=== PATIENT | female | born 2000 | race Two or more races ===

== ENCOUNTER 2019-05-27 13:23 | Emergency (ER) | payer MEDICAID, SELFPAY ==
[2019-05-27 13:27] VITALS: BP 132/67; PULSE 116; RESP 24; TEMP 37.2; O2SAT 99; BMI 21.9
--- NOTE | 2019-05-27 15:14 | ED.DCSUM_ITS ---
History of Present Illness Chief Complaint: Anxiety Informant: Patient Onset: Today Context: Gradual Onset Timing: Continuous Current Severity: Mild Maximum Severity: Severe Narrative: Patient is a 19-year-old female presenting with concern for a panic attack. Patient states she was walking to school at [facility] when she started to feel anxious. Patient states she also started to feel chest tightness, sensation of her heart racing and shortness of breath. She called her friend and then came to the emergency room. Patient states she has not had any in creased stress in her life. She states she had a couple anxiety attacks in the past last one was over the summer. Patient currently states she is feeling better. She still has what she describes as a soreness in her chest. Patient notes she had some diarrhea for the past 2 days. She denies any other complaints. She states 2 weeks ago she was in [facility]. She denies any swelling of her legs. She currently has no shortness of breath. She never had any chest pain. She denies any fever, chills or rash. Patient does not have a counselor or primary care doctor. Patient denies any other complaints at this time. 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 Surgical History: - - Bladder surgery Review of Systems All systems negative except as indicated Cardiovascular: Reports: Heart racing, - - Chest tightness Respiratory: Reports: Dyspnea Gastrointestinal: Reports: Nausea Psych: Reports: Anxiety Physical Exam Vital Signs/Narrative: Vital Signs Temp Pulse Resp BP Pulse Ox 05/27/19 13:27 99.0 F 116 H 24 H 132/67 H 99 Inital Vital Signs reviewed: Yes General: Well nourished, Well developed, No Acute Distress Head: Normocephalic, Atraumatic Eyes: Perrl, EOMI ENT: Moist mucous membranes, No rhinorrhea Neck: Supple, Nontender Cardiovascular: Regular rate, Regular rhythm, No murmurs Respiratory: No distress, CTA bilaterally, Chest nontender Abdomen: Soft, Nontender, Nondistended, Normal bowel sounds Back: Nontender, Normal Inspection Extremities: Nontender, No edema Skin: Normal color, No rash Neurological: Alert, Oriented x3, Cranial nerves II-XII grossly intact, Normal Strength, Normal Sensation Psychological: Normal affect, Normal Mood. Negative for: Agitated Diagnostic/Tx/Re-eval - Rhythm Strip Rhythm Strip: Sinus Rhythm Rate: 91 Ectopy: None - EKG Initial EKG Interpretation: Sinus Rhythm, - - Normal sinus rhythm at a rate of 91 QRS 72 QT/QTc 366/[address] segments - Medical Decision Making She was evaluated for concerns of having a panic attack. Initially she is complaining of chest tightness, palpitations, feeling of her heart racing and anxiety. She does have some associated nausea and states he had 2 episodes diarrhea today. She denies any black or blood in her stool. Patient initially is tachypneic, hypertensive and tachycardic. On reevaluation her vital signs completely normalized without any intervention. Patient states she is feeling much better now. EKG is normal sinus rhythm and showed no signs of heart strain or any other abnormalities. Patient denies any leg swelling. She is on control. Patient is counseled that she does have multiple risk factors for pulmonary embolism and I cannot rule it out completely based on her presentation. She states that this time she does not want to be if not evaluated further with lab work and imaging and thinks it was just a panic attack. She is comfortable with discharge home. She does have 2 roommates that she lives with and can return to the emergency room easily should she have any return or worsening symptoms. Patient is counseled on signs and symptoms requiring return to the emergency room. Patient verbalizes agreement and understand this plan. Patient discharged home in stable and improved condition. ED Disposition - Plan for ED Patient: Disposition: Home or Assisted Living Diagnosis: Panic attack Instructions: Anxiety Reaction Prescriptions: Hydroxyzine Pamoate [Vistaril] 50 mg PO BID PRN PRN #20 cap PRN Reason: Anxiety Prescription Printed Referrals: Care Physician,No Primary [NON-STAFF] - Counseling,Center [GROUP OF PHYSICIANS] - [facility] [GROUP OF PHYSICIANS] - Additional Instructions: You had a normal EKG today. Likely this was a panic attack however I cannot rule out further serious processes at this time. Should you decide to have a more thorough work-up including blood work and imaging please return to emergency room. If you develop worsening shortness of breath, chest pain or other worsening symptoms. Take the Vistaril which is prescribed today as needed for further episodes of anxiety. Please follow-up with the counseling center and/or primary care doctor. You were referred to [facility] which is medical care through the [facility].
[2019-05-27 15:16] VITALS: BP 110/67; PULSE 68; RESP 16; O2SAT 100
--- NOTE | 2019-05-27 15:33 | EKG12_ITS ---
Test Reason : CP Blood Pressure : / mmHG Vent. Rate : 091 BPM Atrial Rate : 091 BPM P-R Int : 124 ms QRS Dur : 072 ms QT Int : 366 ms P-R-T Axes : 063 049 042 degrees QTc Int : 450 ms Normal sinus rhythm Normal ECG Confirmed by THAIS PATEL MD ([id number]), news video editor LANRE RING ([id number]) on 05/31/2019 10:52:24 AM Referred By: MARK Confirmed By:THAIS PATEL MD
--- NOTE | 2019-05-27 15:48 | CM.ED ---
Social Work Consult: Anxiety Informant: Dr. Crenshaw Met with patient and patient friends in room. Introduced self as well as elementary school social worker role. Patient is agreeable to meet with this elementary school social worker. Patient stating to get panic attacks now and then. Patient denies any active counseling services and states to utilize deep breathing to help calm self but to sometimes need medical intervention for assistance and this what brought patient to the ED today. Patient denies any SI/HI. Patient interested in counseling resources. Patient aware of counseling resources [place] [facility] an active student. Patient provided to community counseling resources as well as Crisis Hotline. Support provided. Khang PEARSON, CHRIS
== END 2019-05-27 15:53 | disposition home or self-care (01) ==
PROVIDERS: Emergency Provider Emergency Medicine; Family Provider Family Medicine; PCP Family Medicine
DX: F41.0 Panic disorder [episodic paroxysmal anxiety] (principal); K21.9 Gastro-esophageal reflux disease without esophagitis; Z88.2 Allergy status to sulfonamides; Z79.3 Long term (current) use of hormonal contraceptives
CPT/HCPCS: 93005; 99282